=== PATIENT | male | born 1990 | race Hispanic/Latino ===

== ENCOUNTER 2017-08-12 02:54 | Emergency (ER) | payer BC ==
[2017-08-12 03:21] VITALS: TEMP 97.8
[2017-08-12] MEDS ORDERED: Tdap Vaccine 0.5 ml Vial (10-64 yrs) IM ONE (04:03)
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
[2017-08-12 05:22] VITALS: RESP 18
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
[2017-08-12 07:42] VITALS: BP 94/70; PULSE 85
[2017-08-12 08:38] VITALS: O2SAT 97
== END 2017-08-12 11:25 | disposition home or self-care (01) ==
LOC: H.ER 02:54
DX: S09.90XA Unspecified injury of head, initial encounter (principal); F10.129 Alcohol abuse with intoxication, unspecified; F17.200 Nicotine dependence, unspecified, uncomplicated; Y04.2XXA Assault by strike against or bumped into by another person, initial encounter
CPT/HCPCS: 70450; 70486; 90471; 90715; 96372; 99285; J1630; J2060